=== PATIENT | male | born 2000 | race Caucasian/White ===

== ENCOUNTER 2020-04-14 13:56 | Emergency (ER) | payer OTHER, SELFPAY ==
--- NOTE | ~2020-04-14 | XR_ITS ---
EXAMINATION: XR foot LT min 3V DATE: 04/14/2020 14:47 INDICATION: Left foot pain and swelling TECHNIQUE: Dorsoplantar, lateral, and 2 oblique views of the left foot were obtained. COMPARISON: None. FINDINGS: There is dorsal soft tissue swelling of the foot and lateral ankle soft tissue swelling anny r the lateral malleolus. There is no fracture, dislocation, or subluxation. The bones and joint space s are normal. IMPRESSION: 1. Soft tissue swelling without acute osseous abnormality. Reviewed, dictated and finalized at location B.
[2020-04-14 14:00] VITALS: BP 141/81; PULSE 88; RESP 14; TEMP 37.6; O2SAT 99
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
[2020-04-14] MEDS: IBUPROFEN 400 MG TABLET 800 MG PO (14:37)
[2020-04-14 15:22] VITALS: RESP 15; O2SAT 100
== END 2020-04-14 15:35 | disposition home or self-care (01) ==
PROVIDERS: Emergency Provider Emergency Medicine; PCP Family Medicine
DX: S90.32XA Contusion of left foot, initial encounter (principal); S90.812A Abrasion, left foot, initial encounter; W22.8XXA Striking against or struck by other objects, initial encounter
CPT/HCPCS: 73630; 99282; 99283; A9270; L2112

== ENCOUNTER 2020-08-08 08:44 | Outpatient (CLI) | payer OTHER, SELFPAY ==
[2020-08-08 23:36] LABS: SARS-CoV-2 RNA PCR Positive
== END 2020-08-08 08:45 | disposition home or self-care (01) ==
PROVIDERS: PCP Nurse Practitioner Family; Visit Provider Nurse Practitioner Family
DX: U07.1 COVID-19 (principal)
CPT/HCPCS: 87635; C9803; U0003